=== PATIENT | male | born 1960 | race Caucasian/White ===

== ENCOUNTER 2018-07-01 17:47 | Inpatient (IN) ==
[2018-07-01] MEDS ORDERED: OXYCODONE Oral CONC 10 MG/0.5 ML ORAL.SYG SL PRN (22:01)
[2018-07-01] MEDS ORDERED: Naloxone 0.4 MG/ML INJ IVP PRN (22:01)
[2018-07-01] MEDS ORDERED: *HR* Heparin 5,000 UNIT/ML VIAL IVP PRN (22:08)
[2018-07-01] MEDS ORDERED: *HR* Heparin 5,000 UNIT/ML VIAL IVP ONE (22:08)
--- NOTE | 2018-07-01 22:15 | Internal Med History&Physical ---
Date of Encounter: 07/02/18 Time of Encounter: 21:39 Internal Medicine - H&P: HPI Chief complaint: DVT right lower extremity Admitted From: Hospital to Hospital Transfer Plans for Post Hospital Care: Home History of present illness: Mr. Logan is a 58 year old male Patient presented to the [place] emergency room with concern for possible clot. He had recent vascular surgery about 10 days ago. He was discharged on June 14. He has been on Xarelto for a few months, but has missed doses. His right leg was operated on, and he has had swelling and pain since the procedure. He also had shortness of breath in the setting of COPD and emphysema. He came to the emergency room for further evaluation. The [place] emergency room patient's vital signs initially were heart rate 74, O2 saturation 93%, respiratory rate 21, blood pressure 108/64. CBC: White count 8.0, hemoglobin 13.7, hematocrit 41.7, platelets 299. BMP: Sodium 137, potassium 3.8, chloride 103, carbon dioxide 28, BUN 15, creatinine 0.94. Patient's lactic acid was 1.3. CT angiogram was ordered that showed no PE and no acute process. EKG showed sinus rhythm with a rate of 81, QTC of 476. An ultrasound was performed of the patient's right lower extremity that showed a DVT at the right femoral vein proximal to distal thigh there was no evidence of superficial venous thrombosis in imaged vessels. Patient was put on a heparin drip and transferred to [facility] for further management. Upon my assessment, patient is resting in hospital bed in mild distress secondary to pain. He denies chest pain, abdominal pain, nausea, vomiting, diarrhea and constipation. He says he was feeling short of breath previously but he has a history of COPD and emphysema, and uses an albuterol inhaler for this. He says soaking his leg in hot water helps with the pain, and when he does walk is better to move then to stand still. He has pain that will shoot down from his knee to his foot. He has no pain above his knee. His toes feel numb, like they have for several weeks now. He is a 1-2 pack per day smoker, has family history of blood clots as well as cancers. He is a full code. Past Med Surg Social Fam HX - Past Medical History Medical history: DVT, kidney stones, pulmonary embolus Additional medical history: CVD. cataracts. RBBB. stomach ulcer. emphysema. PE. 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 Right LE , IVC filter. - Social History Smoking Status: Current every day smoker Smokeless Tobacco Status: No Alcohol use: none Drug use: none Internal Medicine - H&P: Meds Aspirin [Lo-Dose Aspirin EC] 81 mg PO DAILY 06/12/18 [History] Fluticasone Propionate Nasal [Flonase] 2 spr NS DAILY 06/12/18 [History] Fluticasone/Salmeterol [Advair 100-50 Diskus] 1 puff IH BID 06/12/18 [History] Rivaroxaban [Xarelto] 20 mg PO DAILY #0 06/12/18 [Rx] Tiotropium [Spiriva] 18 mcg IH DAILY 06/12/18 [History] Albuterol Sulfate [Ventolin Hfa] 2 puff IH Q6H PRN 06/13/18 [History] Ketotifen Fumarate [Allergy Eye Drops] 1 drop BOTH EYES DAILY PRN 06/13/18 [History] Gabapentin 100 mg PO TID 07/01/18 [History] Allergy/AdvReac Type Severity Reaction Status Date / Time No Known Allergies Allergy Verified 06/13/18 16:43 All Systems PM: A 10-system review of systems was performed and is negative for pertinent findings except as documented above in the HPI. - Constitutional Vitals: Temp Pulse Resp BP Pulse Ox 98.2 F 80 14 116/72 98 07/01/18 20:40 07/01/18 20:40 07/01/18 20:40 07/01/18 20:40 07/01/18 20:40 General appearance: Present: cooperative, mild distress, A&O X 3, pleasant, answers questions appropriately Exam: - - Head Head exam: Present: normal inspection - Eye Eye exam: Present: EOMI, normal appearance - Respiratory Respiratory exam: Present: CTAB. Absent: rales, respiratory distress, rhonchi, wheezes - Cardiovascular Cardiovascular exam: Present: RRR. Absent: diastolic murmur, systolic murmur - GI/Abdominal GI/Abdominal exam: Present: normal bowel sounds, soft. Absent: tenderness - Extremities Exam Extremities exam: Present: tenderness, warm, radial pulses palpable and symmetrical. Absent: pedal edema Additional comments: numbness of right leg anteriorly from knee down to toes. Pulses intact, limb is warm, movement intact 2 incisions laterally and medial in lower leg, with bala. Wounds healing well - Neurological Exam Neurological exam: Present: no focal deficits, strengths equal and symetr throughout. Absent: motor sensory deficit, facial droop, speech deficit - Skin Skin exam: Present: dry, intact, normal color, warm. Absent: erythema Internal Med - H&P Results - Labs CBC & Chem 7: 07/01/18 22:27 - Assessment and Plan (1) Deep vein thrombosis Current Visit: No Status: Chronic Assessment and plan: As seen on ultrasound, patient has DVT in right femoral vein in the prox-distal thigh. Started on heparin drip at [facility]. Patient admits to missing some doses of his xarelto. Has history of DVT when he was 17 years old. Continue heparin drip Vascular surgery consult Qualifiers: DVT location: lower extremity Affected thrombotic vein of extremity: femoral Chronicity: chronic Laterality: right Qualified Code(s): I82.511 - Chronic embolism and thrombosis of right femoral vein (2) Right leg numbness Current Visit: Yes Status: Acute Assessment and plan: Likely related to DVT seen on imaging as well as recent surgery. Patient had recent surgery on his leg including endarterectomy, thrombectomy, angioplasty and then also a separte procedure for fasciotomy and thrombectomy. Dr. Mark performed both surgeries. Patient still has bala in his leg incisions. Follow up vasclar surgery recommendations Continue to monitor. (3) COPD (chronic obstructive pulmonary disease) Current Visit: No Status: Chronic Assessment and plan: Continue home albuterol as needed. Qualifiers: COPD type: emphysema Emphysema type: panlobular Qualified Code(s): J43.1 - Panlobular emphysema (4) Hypercoagulable state Current Visit: No Status: Chronic Assessment and plan: Patient has a history of blood clots, first one he had at the age of 17. He has been on anticoagulants on and off over the years. He usually takes the medication for a while, but stops taking it once he starts feeling better. He also has trouble paying for the medication. Heparin drip started (5) Tobacco abuse Current Visit: No Status: Chronic Assessment and plan: 1-2 pack per day smoker. Patient should consider quitting, as it increases his risk of clot even more. Declines nicotine patch - Time Spent With Patient Total time spent is greater than 50% in coordination of care (as documented) at patient's floor/unit and/or counseling patient: Greater than 35 minutes
[2018-07-01 22:36] LABS: Hematocrit 37.8 % (37.5-50.1); Hemoglobin 12.5 g/dL (12.9-16.9); Mean Corpuscular HGB Conc 33.1 g/dL (31.6-35.5); Mean Corpuscular Hemoglobin 30.1 pg (28.0-33.3); Mean Corpuscular Volume 91.1 fL (83.0-100.0); Mean Platelet Volume 9.4 fL (9.4-12.4); Platelet Count 266 K/mcL (140-400); Red Blood Count 4.15 M/mcL (4.19-5.50); Red Cell Distribution Width 13.3 % (11.5-14.5)
[2018-07-01 22:47] LABS: Heparin anti-factor XA UFH 0.72 IU/mL (0.30-0.70)
[2018-07-01 22:48] LABS: INR 1.2; Prothrombin Time 13.4 Seconds (9.4-12.1)
[2018-07-01] MEDS: OXYCODONE Oral CONC 10 MG/0.5 ML ORAL.SYG SL PRN (22:56)
[2018-07-01] MEDS: 0.9 % Sodium Chloride 1,000 ML IVC SCH (22:56)
[2018-07-01] MEDS: Heparin 25,000 UNIT/250 ML D5W 25,000 UNIT/250 ML IV.SOLN IVC SCH (23:44)
[2018-07-02] MEDS: OXYCODONE Oral CONC 10 MG/0.5 ML ORAL.SYG SL PRN ×4 (02:49→20:06)
[2018-07-02] MEDS: 0.9 % Sodium Chloride 1,000 ML IVC SCH (05:44)
[2018-07-02 06:21] LABS: Hematocrit 37.4 % (37.5-50.1); Hemoglobin 12.2 g/dL (12.9-16.9); Mean Corpuscular HGB Conc 32.6 g/dL (31.6-35.5); Mean Corpuscular Volume 91.9 fL (83.0-100.0); Mean Platelet Volume 9.9 fL (9.4-12.4); Platelet Count 247 K/mcL (140-400); Red Blood Count 4.07 M/mcL (4.19-5.50); Red Cell Distribution Width 13.3 % (11.5-14.5)
[2018-07-02 07:29] LABS: BUN/Creatinine Ratio 16 (6-26); Blood Urea Nitrogen 14 mg/dL (6-20); Calcium 8.7 mg/dL (8.6-10.3); Carbon Dioxide 27 mEq/L (23-29); Chloride 107 mEq/L (98-107); Glucose 96 mg/dL (70-105); Osmolality,Calculated 292 (280-300); Potassium 3.9 mEq/L (3.5-5.1); Sodium 141 mEq/L (136-145); eGFR For Non-African Americans > 60 (> 60)
--- NOTE | 2018-07-02 08:57 | Internal Med Progress Note ---
<Estefania Sands - Last Filed: 07/02/18 16:06> Hospitalist Progress Note - Encounter Date of Encounter: 07/02/18 - Exam Vitals: Temp Pulse Resp BP Pulse Ox 97.9 F 72 18 115/67 95 07/02/18 14:42 07/02/18 14:42 07/02/18 14:42 07/02/18 14:42 07/02/18 14:42 - Time Spent with Patient Total time spent is greater than 50% in coordination of care (as documented) at patient's floor/unit and/or counseling patient: Internal Medicine: Result - Labs CBC & Chem 7: 07/02/18 05:57 07/02/18 05:57 Labs: Short CBC 07/01/18 07/02/18 Range/Units 22:27 05:57 WBC 6.6 6.5 (4.3-11.1) K/mcL Hgb 12.5 L 12.2 L (12.9-16.9) g/dL Hct 37.8 37.4 L (37.5-50.1) % Plt Count 266 247 (140-400) K/mcL BMP 07/02/18 05:57 Sodium 141 Potassium 3.9 Chloride 107 Carbon Dioxide 27 BUN 14 Creatinine 0.88 Glucose 96 Calcium 8.7 - ABG Interpretation ABG results: PT/INR, D-dimer PT 13.4 Seconds (9.4-12.1) H 07/01/18 22:27 Consult Discharge Plan - Plan Referrals: Matteo Olivo [Primary Care Provider] - - Attending Attestation I examined this patient and my medical decision-making was reviewed with the Resident Physician Dr Mccormack. I agree with the documented findings, dispos ition and treatment plan as described except to the extent set forth below. Mr Logan was admitted for RLE DVT awake, cont right leg pain, tolerable and resting on hep gtt, denies any bleeding on gtt. no cp, pressure, denies any sob that is beyond his baseline from emphysema. gen- alert, awake,appears stated age cv- reg rate and rhythm, normal s1,s2, no murmurs appreciated, no pitting le edema lungs- ctabl, normal resp effort on ra msk- right leg circumference slightly bigger than left, + geovanna neuro- AAOx3, sensation intact to light touch bl le Chronic RLE DVT femoral vein as our team d/w Dr Mark In past month ahs had endarterectomy, thrombectomies, angioplasty and compartment syndrome requiring fasciotomy He has NOT failed xarelto, he simply does not routinely take it -our team d/w Dr Mark who will see him later today, no intervention planned -cont hep gtt -hope we can transition to Xarelto in am -sw consulted to assess how we can help him at home to be complaint COPD, stable CTA chest neg for PE sob is at his home baseline -cont home meds Chronic anemia stable further diagnoses and plan as noted by resident <Jolene Mccormack - Last Filed: 07/02/18 17:20> Hospitalist Progress Note - Encounter Date of Encounter: 07/02/18 Time of Encounter: 08:57 - Subjective Interval History: Patient seen and examined at bedside today. Past medical history of hypercoagulable state, DVT, PE, peripheral vascular disease, CAD, COPD, GI ulcer, right bundle branch block, current smoker. He presented from [place] emergency department after presenting with right lower extremity pain. He had a Doppler ultrasound performed of the right lower extremity that showed a DVT in the right femoral vein proximal to the distal thigh. He was placed on heparin drip and transferred to [place]. She also had a CTA that was negative for PE or acute process. Recent vascular surgery. On 06/12/18, patient had an IVC filter placed for chronic DVT in right superficial femoral as well as right popliteal. Then on 06/13/18 he underwent right superficial femoral endarterectomy with angioplasty, right popliteal artery thrombectomy, right tibial peroneal trunk endarterectomy with angioplasty. Later that day after the initial procedure patient had suspected compartment syndrome and was returned to the OR for right lower extremity exploration with fasciotomy and repeat thrombectomy. Patient states that he has had right lower extremity pain from the knee down since his surgery. He has a dull aching pain around calf where incisions are located as well as shooting neuropathic pain down to his foot. He states it is aggravated by standing still and improved upon with walking. Patient states that he continues to smoke 2 packs per day. He states that he has been taking his Xarelto approximately every other day since the surgery. He currently denies any shortness of breath, chest pain, pleuritic pain, abdominal pain, change in bowel habits, hematochezia, melena, dysuria, hematuria, pain in left leg. - Exam Vitals: Temp Pulse Resp BP Pulse Ox 98.4 F 59 20 113/72 95 07/02/18 07:03 07/02/18 07:03 07/02/18 07:03 07/02/18 07:03 07/02/18 07:03 Exam: Gen: Vitals noted. No acute distress. AAOx3, mildly agitated. HEENT: PERRL/EOMI, oropharynx clear, Normocephalic, atraumatic, MMM Cardiac: RRR, no murmur, +S1/S2, radial and posterior tibial pulses 3+ and symmetrical Pulmonary: Diminished lung sounds bilaterally, no wheezes, rales or rhonchi, equal chest expansion Abdomen: soft, nontender, BS noted, no guarding, no rebound. MSK: ROM intact, no joint swelling noted Extremities: Mild edema of right leg as compared to left, a well-healing lateral and medial calf incision with bala in place, no signs of drainage, erythema or infection. Tenderness to palpation around surgical incisions and calf. Feet symmetrically warm, dorsal pedis pulses 3+ and symmetrical, no cyanosis or clubbing Neuro: A&Ox3, moves all extremities, no focal deficits Psych: Appropriate mood and behavior - Assessment and Plan (1) Deep vein thrombosis Current Visit: No Status: Chronic Assessment and Plan: Patient has chronic right DVT- medication noncompliance with Xarelto, recent vascular surgery, history of hypercoagulable state with DVT and PE, current smoker 06/12/18-IVC filter placed for chronic right DVT and superficial femoral and right popliteal 06/13/18-right superficial endarterectomy with angioplasty, right popliteal artery thrombectomy, right tibial peroneal trunk endarterectomy with angioplasty 06/13/18-compartment syndrome with fasciotomy and repeat thrombectomy Ultrasound yesterday at [place] ED showed DVT in right femoral vein the proximal/distal thigh CTA at [place] was negative for PE or acute pulmonary process Continue pain management with sublingual oxycodone Continue heparin drip Plan on transitioning to Xarelto- patient did not fail treatment with Xarelto, rather he has been noncompliant Vascular surgery consulted for recommendations Social work consult for possible home services, medication noncompliance (2) Right leg numbness Current Visit: Yes Status: Acute Assessment and Plan: Patient complains of right lower extremity numbness and neuropathic pain Likely secondary to recent surgery Continue gabapentin (3) Hypercoagulable state Current Visit: No Status: Chronic Assessment and Plan: Patient has a history of hypercoagulable state First blood clot occurred around age 17 Has been off and on anticoagulation since that time Continue heparin drip with plan to transition to Xarelto Encouraged medication compliance with Xarelto (4) COPD (chronic obstructive pulmonary disease) Current Visit: Yes Status: Chronic Assessment and Plan: History of COPD Not in exacerbation Continue albuterol, Symbicort, Spiriva Respiratory support as needed (5) Tobacco abuse Current Visit: No Status: Chronic Assessment and Plan: History of tobacco abuse Currently smoking 2 packs per day Discussed risks of smoking as well as risk of further blood clots Encourage smoking cessation (6) Anemia Current Visit: Yes Status: Acute Assessment and Plan: Review of chart shows patient's hemoglobin to be 15.8 and May prior to vascular surgery Has been baseline 12 since that time No acute bleeding at this time, no melena or hematochezia Further workup outpatient with PCP DVT Prophylaxis: Heparin drip - Time Spent with Patient Total time spent is greater than 50% in coordination of care (as documented) at patient's floor/unit and/or counseling patient: Internal Medicine: Result - Labs CBC & Chem 7: 07/02/18 05:57 07/02/18 05:57 Labs: Short CBC 07/01/18 07/02/18 Range/Units 22:27 05:57 WBC 6.6 6.5 (4.3-11.1) K/mcL Hgb 12.5 L 12.2 L (12.9-16.9) g/dL Hct 37.8 37.4 L (37.5-50.1) % Plt Count 266 247 (140-400) K/mcL BMP 07/02/18 05:57 Sodium 141 Potassium 3.9 Chloride 107 Carbon Dioxide 27 BUN 14 Creatinine 0.88 Glucose 96 Calcium 8.7 - ABG Interpretation ABG results: PT/INR, D-dimer PT 13.4 Seconds (9.4-12.1) H 07/01/18 22:27 <Jolene Mccormack - Tres Filed: 07/02/18 17:20> (1) Deep vein thrombosis Qualifiers: DVT location: lower extremity Affected thrombotic vein of extremity: femoral Chronicity: chronic Laterality: right Qualified Code(s): I82.511 - Chronic embolism and thrombosis of right femoral vein (4) COPD (chronic obstructive pulmonary disease) Qualifiers: COPD type: emphysema Emphysema type: panlobular Qualified Code(s): J43.1 - Panlobular emphysema (6) Anemia Qualifiers: Anemia type: unspecified type Qualified Code(s): D64.9 - Anemia, unspecified
[2018-07-02] MEDS: *HR* Heparin 5,000 UNIT/ML VIAL IVP PRN (14:53)
--- NOTE | 2018-07-02 18:17 | Vascular/Endovasc Consult Note ---
Date of Encounter: 07/02/18 Time of Encounter: 11:30 Assessment and Plan (1) Deep vein thrombosis Status: Chronic The patient has a chronic DVT. His DVT was present prior to his bypass surgery. He has a hypercoagulable state. He states that he missed a few doses. He will need to resume oral anticoagulation. The patient has been previously treated with Xarelto 20 mg daily. He does not appear to have had a failure of anticoagulation. He should resume his medication. Qualifiers: DVT location: lower extremity Affected thrombotic vein of extremity: femoral Chronicity: chronic Laterality: right Qualified Code(s): I82.511 - Chronic embolism and thrombosis of right femoral vein (2) Atherosclerosis of [place] arteries of extremities with intermittent claudication, right leg Status: Chronic The patient is status post a right femoral to tibial bypass. His graft is patent and his right lower extremity is well perfused. He has a palpable right dorsalis pedis pulse. His incisions are healing well. His compartments are soft. The patient will follow-up in vascular clinic as previously scheduled. (3) Peripheral neuropathy Status: Chronic The patient has symptoms consistent with peripheral neuropathy involving the right lower extremity. He was previously taking gabapentin with success. He will be restarted on gabapentin. Qualifiers: Peripheral neuropathy type: inflammatory polyneuropathy, unspecified Qualified Code(s): G61.9 - Inflammatory polyneuropathy, unspecified; G61.1 - Serum neuropathy (4) COPD (chronic obstructive pulmonary disease) Status: Chronic Qualifiers: COPD type: emphysema Emphysema type: panlobular Qualified Code(s): J43.1 - Panlobular emphysema (5) Hypercoagulable state Status: Chronic (6) Tobacco abuse Status: Chronic - History of Present Illness Consult date: 07/02/18 Requesting physician: Hay Ortiz Consult reason: Chronic deep vein thrombosis Chief complaint: Leg pain History of present illness: Mr. Logan is a 58 year old male with history of peripheral vascular disease, hypercoagulable state, chronic deep vein thrombosis, COPD and tobacco abuse. He has been chronically anticoagulated due to his hypercoagulable state. Patient has a known extremity deep vein thrombosis. His inferior vena cava filter in place. The patient reports he missed a few days of his anticoagulation and developed increased leg pain. In addition the patient has chronic neuropathy of the right lower extremity due to prolonged ischemia. He was previously treated with gabapentin, but he ran out of the medication. Diffuse increased pain and was admitted to [facility]. Vascular surgery was counseled for further evaluation of his deep vein thrombosis and is chronically pain. Of note the patient is also undergone a right femoral to tibial bypass and his previous required a fasciotomy. The patient reports intermittent shooting and burning pain when he stands he states that this pain is relieved with ambulation. He currently denies any chest pain or shortness of breath. Past Med Surg Social Fam HX - Past Medical History Medical history: DVT, kidney stones, pulmonary embolus Additional medical history: CVD. cataracts. RBBB. stomach ulcer. emphysema. PE. 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 Right LE , IVC filter. - Social History Smoking Status: Current every day smoker Smokeless Tobacco Status: No Alcohol use: none Drug use: none - Family History Mother Living Status: Father Living Status: Medications and Allergies Aspirin [Lo-Dose Aspirin EC] 81 mg PO DAILY 06/12/18 [History] Fluticasone Propionate Nasal [Flonase] 2 spr NS DAILY 06/12/18 [History] Fluticasone/Salmeterol [Advair 100-50 Diskus] 1 puff IH BID 06/12/18 [History] Rivaroxaban [Xarelto] 20 mg PO DAILY #0 06/12/18 [Rx] Albuterol Sulfate [Ventolin Hfa] 2 puff IH Q6H PRN 06/13/18 [History] Ketotifen Fumarate [Allergy Eye Drops] 1 drop BOTH EYES DAILY PRN 06/13/18 [History] Gabapentin [Neurontin] 100 mg PO TID 07/01/18 [History] Tiotropium [place] [Spiriva Respimat] 2 puff IH DAILY 07/02/18 [History] Allergy/AdvReac Type Severity Reaction Status Date / Time No Known Allergies Allergy Verified 07/02/18 17:49 All Systems Review: The remainder of the systems were reviewed and are negative - Constitutional Constitutional: no chills, no fever(s) - Cardiovascular Cardiovascular: no chest pain at rest, no dyspnea at rest - Gastrointestinal Gastrointestinal: no abdominal pain Exam Vital Signs, Last 4 Hours Temp Pulse Resp BP Pulse Ox 07/02/18 14:42 97.9 F 72 18 115/67 95 General: Present: Conversant, No Apparent Distress HEENT: Present: Pupils equal Neck: Absent: JVD, Lymphadenopathy Cardiac: Present: Reg Rate and Rhythm Lungs: Present: Normal Breath Sounds, No Wheeze, Rales, Rhonchi Neuro: Present: Alert and responsive, Motor nerves grossly intact, Other (Hypersensitivity along the anterior right foot) Abdomen: Present: Soft, Non-tender Vascular: Present: Normal capillary refill, Pulse, normal (Right posterior tibial pulse palpable), Surgical incisions (Incisions clean, dry and intact without erythema or drainage). Absent: Cyanosis, Edema Musculoskeletal: Present: Other (Compartments are soft) Consult Discharge Plan - Plan Instructions: Rivaroxaban (By mouth), Deep Venous Thrombosis (DC) Additional Instructions: TAKE XARELTO EVERY DAY IN THE MORNING YOU HAD YOUR DOSE TODAY FOLLOW UP WITH DR MCCAULEY ALREADY SCHEDULED Referrals: Stephane Mccauley MD [Partnered Physician] - Matteo Olivo [Primary Care Provider] - 07/04/18 9:00 am
[2018-07-02] MEDS: Tiotropium 18 MCG inhalation IH SCH (19:30)
[2018-07-02] MEDS: Gabapentin 100 MG CAPSULE PO SCH (20:06)
[2018-07-02] MEDS: Budesonide/Formoterol 80/4.5 MDI IH SCH (20:22)
[2018-07-02] MEDS ORDERED: Gabapentin 100 MG CAPSULE PO SCH (21:00)
[2018-07-03] MEDS: *HR* Heparin 5,000 UNIT/ML VIAL IVP PRN (00:05)
[2018-07-03] MEDS: OXYCODONE Oral CONC 10 MG/0.5 ML ORAL.SYG SL PRN ×2 (00:15→06:01)
[2018-07-03] MEDS: Heparin 25,000 UNIT/250 ML D5W 25,000 UNIT/250 ML IV.SOLN IVC SCH (02:52)
[2018-07-03 07:19] LABS: Basophils # 0.1 K/mcL (0.0-0.2); Basophils % 1.6 %; Eosinophils # 0.6 K/mcL (0.0-0.6); Eosinophils % 10.2 %; Hematocrit 37.8 % (37.5-50.1); Hemoglobin 12.5 g/dL (12.9-16.9); Immature Granulocytes % 0.2 % (0-4); Lymphocytes # 2.1 K/mcL (0.6-4.6); Lymphocytes % 34.2 %; Mean Corpuscular HGB Conc 33.1 g/dL (31.6-35.5); Mean Corpuscular Hemoglobin 29.7 pg (28.0-33.3); Mean Corpuscular Volume 89.8 fL (83.0-100.0); Mean Platelet Volume 9.9 fL (9.4-12.4); Monocytes # 0.5 K/mcL (0.0-1.3); Monocytes % 8.5 %; Neutrophils # 2.8 K/mcL (1.6-8.9); Platelet Count 238 K/mcL (140-400); Red Blood Count 4.21 M/mcL (4.19-5.50); Red Cell Distribution Width 12.7 % (11.5-14.5); Segmented Neutrophils % 45.3 %
[2018-07-03 07:32] LABS: BUN/Creatinine Ratio 11 (6-26); Blood Urea Nitrogen 10 mg/dL (6-20); Calcium 9.1 mg/dL (8.6-10.3); Carbon Dioxide 29 mEq/L (23-29); Chloride 101 mEq/L (98-107); Glucose 101 mg/dL (70-105); Osmolality,Calculated 281 (280-300); Sodium 136 mEq/L (136-145); eGFR For Non-African Americans > 60 (> 60)
[2018-07-03] MEDS: Budesonide/Formoterol 80/4.5 MDI IH SCH (07:54)
[2018-07-03] MEDS: Tiotropium 18 MCG inhalation IH SCH (07:55)
[2018-07-03] MEDS: Gabapentin 100 MG CAPSULE PO SCH (08:57)
[2018-07-03] MEDS ORDERED: Fluticasone Propionate Nasal 50 MCG/SPRAY BOTTLE NS SCH (09:00)
--- NOTE | 2018-07-03 11:45 | Discharge Summary ---
- NOTES TO OUTPATIENT PROVIDER Notes to Outpatient Provider: Follow up with Dr Mccauley as scheduled. Cont home xarelto daily. Orders not resulted at time of discharge: Pending orders 07/03/18 14:50 Heparin anti-factor XA UFH [COAG] Timed Date of Encounter: 07/03/18 Time of Encounter: 09:00 - Discharge Diagnosis (1) Right leg pain Priority: Primary Status: Chronic Assessment and Plan: 2/2 DVT see below cont home OTC as instructed on bottle for pain control we did not rx opiate for this chronci pain comfortable on dc follow up with putpt providers (2) Chronic deep vein thrombosis (DVT) Priority: Secondary Status: Chronic Assessment and Plan: Chronic RLE DVT femoral vein as our team d/w Dr Mccauley In past month ahs had endarterectomy, thrombectomies, angioplasty and compartment syndrome requiring fasciotomy He has NOT failed xarelto, he simply does not routinely take it -our team d/w Dr Mccauley no intervention planned, CONT HOME XARELTO, FU OUTPT -give xarelto, then dc hep gtt -sw consulted to assess how we can help him at home to be complaint Qualifiers: DVT location: lower extremity Affected thrombotic vein of extremity: femoral Laterality: right Qualified Code(s): I82.511 - Chronic embolism and thrombosis of right femoral vein (3) Emphysema of lung Priority: Secondary Status: Chronic Assessment and Plan: COPD, stable CTA chest neg for PE sob is at his home baseline -cont home meds Qualifiers: Emphysema type: unspecified Qualified Code(s): J43.9 - Emphysema, unspecified (4) Chronic anemia Priority: Secondary Status: Chronic Assessment and Plan: stable (5) Tobacco abuse Priority: Secondary Status: Chronic Assessment and Plan: encouraged cessation, declined patch Hospital course: Mr. Logan is a 58 year old male with chronic hypercoagulable state with multiple DVTS s/p IVCF, recent endarterectomy, thrombectomies, angioplasty and compartment syndrome requiring fasciotomy of the RLE end of May by Dr Mccauley, tobacco dependence, chronic anemia, chronic anticoagulation use with non compliance admitted by patient, and emphysema on home inhalers without oxygen requirement. He was admitted with RLE numbness and pain post procedure. US RLE showed DVT that as d/w Dr Mccauley is chronic for patient. Pt admitted to not routinely taking Xarelto at home. He was started on hep gtt. Hgb stayed stable at his baseline chronic anemia value. He has no issues with his emphysema. Though he noted sob in ED and got CTA chest which was negative for pe or other etiology of sob. Pt reported on admission he was at his baseline sob. I discuss ed with Dr Mccauley whom saw him in consultation 07/02 and this is a chronic dVT for which no intervention is required and pt may transition to home xarelto and stop hep gtt and dc to home with outpt follow up. SW was consulted to assess any home needs to aide compliance. Discharge discussed with: patient, nurse, apprenticeship consultant Time spent discussing smoking cessation with patient: more than 10 minutes - Time Spent with Patient Total time spent providing and/or coordinating discharge services: Time spent: Greater than 30 minutes (45 min) - Discharge Medications Prescriptions: Continued Fluticasone/Salmeterol [Advair 100-50 Diskus] 1 puff IH BID Fluticasone Propionate Nasal [Flonase] 2 spr NS DAILY Aspirin [Lo-Dose Aspirin EC] 81 mg PO DAILY Rivaroxaban [Xarelto] 20 mg PO DAILY #0 Albuterol Sulfate [Ventolin Hfa] 2 puff IH Q6H PRN PRN Reason: Shortness Of Breath Ketotifen Fumarate [Allergy Eye Drops] 1 drop BOTH EYES DAILY PRN PRN Reason: Allergy Symptoms Gabapentin [Neurontin] 100 mg PO TID Tiotropium [place] [Spiriva Respimat] 2 puff IH DAILY Home Medications: Aspirin [Lo-Dose Aspirin EC] 81 mg PO DAILY 06/12/18 [History] Fluticasone Propionate Nasal [Flonase] 2 spr NS DAILY 06/12/18 [History] Fluticasone/Salmeterol [Advair 100-50 Diskus] 1 puff IH BID 06/12/18 [History] Rivaroxaban [Xarelto] 20 mg PO DAILY #0 06/12/18 [Rx] Albuterol Sulfate [Ventolin Hfa] 2 puff IH Q6H PRN 06/13/18 [History] Ketotifen Fumarate [Allergy Eye Drops] 1 drop BOTH EYES DAILY PRN 06/13/18 [History] Gabapentin [Neurontin] 100 mg PO TID 07/01/18 [History] Tiotropium [place] [Spiriva Respimat] 2 puff IH DAILY 07/02/18 [History] Allergies/Adverse Reactions: Allergy/AdvReac Type Severity Reaction Status Date / Time No Known Allergies Allergy Verified 07/02/18 17:49 Date of admission: 07/01/18 22:26 Primary care physician: Matteo Olivo Consults: 07/01/18 22:03 Consult to Vascular Surgery [CONS] Routine Consulting Provider: [facility] [place] Reason for Consult: DVT status post endarterectomy, thrombectomy and fasciotomy Call Completed: No 07/02/18 17:14 Consult to [employer] [CONS] Routine Reason for SW Consult: Medication noncompliance, social issues Discharging clinician: Estefania Sands - Constitutional Vitals: Temp Pulse Resp BP Pulse Ox 98.0 F 58 18 101/62 94 07/03/18 07:15 07/03/18 07:15 07/03/18 07:57 07/03/18 07:15 07/03/18 07:57 General appearance: Present: cooperative, mild distress, A&O X 3, pleasant, answers questions appropriately Exam: awake, pain is at baseline. takes otc pain meds at home. walking without difficulty. no cp, sob. discussed dc plan and stress med complance. pt verbalized understanding and has no questions regarding dc. states he has appt with Dr Mccauley already scheduled for next week gen- alert, awake,appears stated age cv- reg rate and rhythm, normal s1,s2, no murmurs appreciated, no pitting le edema lungs- ctabl, normal resp effort on ra msk- right leg circumference slightly bigger than left skin- healing surgical wounds without erythema, drainage or increased warmth, bala in place neuro- AAOx3, sensation intact to light touch bl le - Patient Status Disposition: Home, Self-Care Condition: Good Functional capacity at discharge: independent ambulation Overall status at discharge: patient is back to baseline - Discharge Instructions Follow Up With: Matteo Olivo [Primary Care Provider] - Stephane Mccauley MD [Partnered Physician] - Additional Instructions: TAKE XARELTO EVERY DAY IN THE MORNING YOU HAD YOUR DOSE TODAY FOLLOW UP WITH DR MCCAULEY ALREADY SCHEDULED - Diet and Activity Activity: increase activity as tolerated Diet: advance to your usual diet
[2018-07-03 11:49] VITALS: BP 98/62
[2018-07-03] MEDS ORDERED: *HR* Rivaroxaban 10 MG TABLET PO SCH (13:00)
[2018-07-04] MEDS ORDERED: NON-FORMULARY MEDICATION 1 EACH EACH (Tiotropium Bromide [Spiriva Respimat] 2 PUFF) IH SCH (09:00)
== END 2018-07-03 15:15 | disposition home or self-care (01) | DRG 300 ==
LOC: 3BNU → SUATTDRO 22:26
PROVIDERS: ADMIT Internal Medicine; ATTEND Internal Medicine

== ENCOUNTER 2018-12-06 08:17 | Observation (INO) ==
[2018-12-06] MEDS ORDERED: Naloxone 0.4 MG/ML INJ IVP PRN ×2 (10:01→21:53)
[2018-12-06] MEDS ORDERED: Ondansetron 4 MG/2 ML VIAL IVP PRN ×2 (10:01→21:53)
[2018-12-06] MEDS ORDERED: *HR* Labetalol 20 MG/4 ML SYRINGE IVP PRN ×3 (10:01→21:53)
[2018-12-06] MEDS ORDERED: 0.9 % Sodium Chloride 1,000 ML IVC SCH ×2 (10:15→21:53)
[2018-12-06 10:39] LABS: Basophils # 0.1 K/mcL (0.0-0.2); Basophils % 0.8 %; Eosinophils # 0.3 K/mcL (0.0-0.6); Eosinophils % 4.6 %; Hematocrit 44.8 % (37.5-50.1); Hemoglobin 14.7 g/dL (12.9-16.9); Immature Granulocytes % 0.2 % (0-4); Lymphocytes # 1.4 K/mcL (0.6-4.6); Lymphocytes % 21.3 %; Mean Corpuscular HGB Conc 32.8 g/dL (31.6-35.5); Mean Corpuscular Hemoglobin 30.5 pg (28.0-33.3); Mean Corpuscular Volume 92.9 fL (83.0-100.0); Mean Platelet Volume 10.1 fL (9.4-12.4); Monocytes # 0.8 K/mcL (0.0-1.3); Monocytes % 11.9 %; Platelet Count 187 K/mcL (140-400); Red Blood Count 4.82 M/mcL (4.19-5.50); Red Cell Distribution Width 13.5 % (11.5-14.5); Segmented Neutrophils % 61.2 %; White Blood Count 6.5 K/mcL (4.3-11.1)
[2018-12-06 10:57] LABS: INR 1.1; Prothrombin Time 12.6 Seconds (9.4-12.1)
[2018-12-06 11:00] LABS: Activated Partial Thrombo Time 34.5 Seconds (26.0-36.0)
[2018-12-06 11:00] LABS: BUN/Creatinine Ratio 19 (6-26); Blood Urea Nitrogen 20 mg/dL (6-20); Carbon Dioxide 31 mEq/L (23-29); Chloride 103 mEq/L (98-107); Glucose 107 mg/dL (70-105); Osmolality,Calculated 293 (280-300); Potassium 4.1 mEq/L (3.5-5.1); Sodium 140 mEq/L (136-145); eGFR For African Americans > 60 (> 60); eGFR For Non-African Americans > 60 (> 60)
[2018-12-06] MEDS: *HR* Metoprolol 5 MG/5 ML VIAL IVP SCH ×2 (11:59→19:04)
[2018-12-06] MEDS ORDERED: *HR* Heparin 5,000 UNIT/ML VIAL IVP ONE ×2 (12:23→21:53)
[2018-12-06] MEDS ORDERED: *HR* Heparin 5,000 UNIT/ML VIAL IVP PRN ×4 (12:23→21:53)
[2018-12-06] MEDS ORDERED: Heparin 25,000 UNIT/250 ML D5W 25,000 UNIT/250 ML IV.SOLN IVC SCH ×2 (12:30→21:53)
[2018-12-06] MEDS ORDERED: Calcium Gluconate 1,000 MG/10 ML VIAL ONE (15:45)
[2018-12-06] MEDS ORDERED: Lidocaine HCL 4 ML Topical Solution (Laryng-O-Jet Kit Sterile Pak) TP ONE (15:55)
[2018-12-06] MEDS ORDERED: Lidocaine -MPF 4% 5 ML AMPUL ONE (15:55)
[2018-12-06] MEDS ORDERED: *HR* FentaNYL (PF) 100 MCG/2 ML VIAL ONE (15:55)
[2018-12-06] MEDS ORDERED: Dexamethasone 4 MG/ML VIAL ONE (15:55)
[2018-12-06] MEDS ORDERED: Ondansetron 4 MG/2 ML VIAL ONE (15:55)
[2018-12-06] MEDS ORDERED: Lidocaine -MPF 2% 2 ML VIAL ONE ×2 (15:55→16:22)
[2018-12-06] MEDS ORDERED: *HR* Succinylcholine 200 MG/10 ML VIAL IVP ONE (15:55)
[2018-12-06] MEDS ORDERED: *HR* Rocuronium Bromide 50 MG/5 ML VIAL ONE (15:55)
[2018-12-06] MEDS ORDERED: *HR* Midazolam HCl 2 MG/2 ML VIAL ONE (15:56)
[2018-12-06] MEDS ORDERED: *HR* Propofol 200 MG/20 ML VIAL IVP ONE (15:56)
[2018-12-06] MEDS ORDERED: Vancomycin 1,000 MG, Sodium Chloride IRRigation 1,000 ML IR ONE (16:00)
[2018-12-06] MEDS ORDERED: Albuterol 2.5 MG/3 ML NEBULIZER IH ONE (16:00)
[2018-12-06] MEDS ORDERED: Acetaminophen IV 1,000 MG/100 ML INFUS..BTL ONE (16:11)
[2018-12-06] MEDS ORDERED: *HR* Heparin 5,000 UNIT/ML VIAL ONE (16:12)
[2018-12-06] MEDS ORDERED: Albuterol 2.5 MG/3 ML NEBULIZER ONE (16:14)
[2018-12-06] MEDS ORDERED: ceFAZolin 2,000 MG in Water for inj. (sterile) 20 ML IVP ONE (16:14)
[2018-12-06] MEDS ORDERED: Heparin 1,000 UNITS/500 mL 500 ML ONE (16:16)
[2018-12-06] MEDS ORDERED: Lidocaine 1% 20 ML MDV ONE (16:18)
[2018-12-06] MEDS ORDERED: *HR* Promethazine 25 MG/ML VIAL IVP PRN (16:51)
[2018-12-06] MEDS ORDERED: *HR* HYDROmorphone (PF) 1 MG/ML SYRINGE IVP PRN (16:51)
[2018-12-06] MEDS ORDERED: Ondansetron 4 MG/2 ML VIAL IVP ONE (16:51)
[2018-12-06] MEDS ORDERED: *HR* PHENYLEPHRINE 1,000 MCG/10 ML SYRINGE IVP ONE (17:09)
[2018-12-06] MEDS ORDERED: *HR* OxyCODONE Immed Rel 5 MG TABLET PO PRN ×2 (21:53)
[2018-12-06] MEDS ORDERED: Acetaminophen 325 MG TABLET PO PRN ×2 (21:53)
[2018-12-06] MEDS ORDERED: [UNRECOGNIZED DRUG - REMARK] OP PRN (21:53)
[2018-12-06] MEDS ORDERED: *HR* HYDROcodone/Acet 5/325 mg TABLET PO PRN ×2 (21:53)
[2018-12-06] MEDS: Gabapentin 100 MG CAPSULE PO SCH (23:09)
[2018-12-07] MEDS: Budesonide/Formoterol 80/4.5 1 PUFF INH IH SCH ×2 (00:49→10:32)
[2018-12-07] MEDS: *HR* Metoprolol 5 MG/5 ML VIAL IVP SCH ×3 (03:02→13:09)
[2018-12-07] MEDS: Gabapentin 100 MG CAPSULE PO SCH ×2 (08:12→16:18)
[2018-12-07] MEDS ORDERED: Aspirin Enteric Coated 81 MG Tablet PO SCH (09:00)
[2018-12-07] MEDS ORDERED: Fluticasone Propionate Nasal 50 MCG/SPRAY BOTTLE NS SCH (09:00)
[2018-12-07 09:34] LABS: Basophils % 0.4 %; Eosinophils # 0.1 K/mcL (0.0-0.6); Eosinophils % 0.9 %; Hematocrit 38.4 % (37.5-50.1); Immature Granulocytes % 0.2 % (0-4); Lymphocytes # 1.6 K/mcL (0.6-4.6); Lymphocytes % 17.7 %; Mean Corpuscular HGB Conc 33.3 g/dL (31.6-35.5); Mean Corpuscular Hemoglobin 30.2 pg (28.0-33.3); Mean Corpuscular Volume 90.6 fL (83.0-100.0); Mean Platelet Volume 10.5 fL (9.4-12.4); Monocytes # 0.6 K/mcL (0.0-1.3); Monocytes % 6.2 %; Neutrophils # 6.7 K/mcL (1.6-8.9); Platelet Count 183 K/mcL (140-400); Red Blood Count 4.24 M/mcL (4.19-5.50); Red Cell Distribution Width 13.4 % (11.5-14.5); Segmented Neutrophils % 74.6 %
[2018-12-07 09:44] LABS: Hemoglobin 12.8 g/dL (12.9-16.9)
[2018-12-07 09:48] LABS: BUN/Creatinine Ratio 18 (6-26); Blood Urea Nitrogen 18 mg/dL (6-20); Calcium 8.5 mg/dL (8.6-10.3); Carbon Dioxide 28 mEq/L (23-29); Chloride 100 mEq/L (98-107); Glucose 184 mg/dL (70-105); Osmolality,Calculated 285 (280-300); Potassium 4.5 mEq/L (3.5-5.1); Sodium 134 mEq/L (136-145); eGFR For African Americans > 60 (> 60); eGFR For Non-African Americans > 60 (> 60)
[2018-12-07] MEDS ORDERED: Tiotropium 18 MCG inhalation IH SCH (10:00)
[2018-12-07] MEDS ORDERED: *HR* Rivaroxaban 10 MG TABLET PO ONE (14:39)
[2018-12-07] MEDS ORDERED: FLU Vac QV 19-20 (6Month+)/PF 0.5 ML SYRINGE IM ONE (15:35)
[2018-12-07 15:46] VITALS: BP 128/69
== END 2018-12-07 16:45 | disposition home or self-care (01) ==
LOC: 3BNU → 2NNU 21:00
PROVIDERS: ADMIT Surgery; ATTEND Surgery

== ENCOUNTER 2019-01-01 09:54 | Inpatient (IN) ==
[~2019-01-01 09:54] MED LIST: Vancomycin 1,000 MG, Sodium Chloride IRRigation 1,000 ML IR ONE
[2019-01-01] MEDS ORDERED: Albuterol 2.5 MG/3 ML NEBULIZER IH PRN ×2 (10:19→11:20)
[2019-01-01] MEDS ORDERED: Acetaminophen IV 1,000 MG/100 ML INFUS..BTL IVPB ONE (10:19)
[2019-01-01] MEDS ORDERED: CeFAZolin Syr 2,000MG/20 ML 2,000 MG/20 ML SYRINGE IVPB ONE (10:19)
[2019-01-01] MEDS ORDERED: Ringers Solution, Lactated 1,000 ML IVC SCH (10:30)
[2019-01-01] MEDS ORDERED: *HR* Propofol 200 MG/20 ML VIAL IVP ONE (10:57)
[2019-01-01] MEDS ORDERED: *HR* Midazolam HCl 2 MG/2 ML VIAL ONE (10:58)
[2019-01-01] MEDS ORDERED: *HR* FentaNYL (PF) 100 MCG/2 ML VIAL ONE ×2 (10:58→12:55)
[2019-01-01] MEDS ORDERED: Dexamethasone 4 MG/ML VIAL ONE (11:02)
[2019-01-01] MEDS ORDERED: Lidocaine -MPF 2% 2 ML VIAL ONE (11:02)
[2019-01-01] MEDS ORDERED: Lidocaine HCL 4 ML Topical Solution (Laryng-O-Jet Kit Sterile Pak) TP ONE (11:02)
[2019-01-01] MEDS ORDERED: Ondansetron 4 MG/2 ML VIAL ONE (11:02)
[2019-01-01] MEDS ORDERED: *HR* Rocuronium Bromide 50 MG/5 ML VIAL ONE (11:02)
[2019-01-01] MEDS ORDERED: Ipratropium Neb 0.5 MG NEBULIZER IH PRN (11:20)
[2019-01-01] MEDS ORDERED: *HR* OxyCODONE Immed Rel 5 MG TABLET PO PRN ×2 (11:20→15:21)
[2019-01-01] MEDS ORDERED: Ondansetron 4 MG/2 ML VIAL IVP ONE (11:20)
[2019-01-01] MEDS ORDERED: *HR* HYDROmorphone (PF) 1 MG/ML SYRINGE IVP PRN (11:20)
[2019-01-01] MEDS ORDERED: *HR* Meperidine 25 MG/ML SYRINGE IVP PRN (11:20)
[2019-01-01] MEDS ORDERED: *HR* Promethazine 25 MG/ML VIAL IVP PRN (11:20)
[2019-01-01] MEDS ORDERED: Vancomycin 1,000 MG VIAL ONE (11:56)
[2019-01-01] MEDS ORDERED: *HR* PHENYLEPHRINE 1,000 MCG/10 ML SYRINGE IVP ONE (12:36)
[2019-01-01] MEDS ORDERED: EPHEDrine 50 MG/ML VIAL ONE (13:17)
[2019-01-01] MEDS ORDERED: *HR* Phenylephrine 10 MG/ML VIAL ONE (13:20)
[2019-01-01] MEDS ORDERED: Neostigmine Methylsulfate 3 MG/3 ML SYRINGE ONE (13:47)
[2019-01-01] MEDS ORDERED: *HR* HYDROMORPHONE 2 MG/ML VIAL ONE (13:58)
[2019-01-01] MEDS ORDERED: Acetaminophen 325 MG TABLET PO PRN ×2 (15:21)
[2019-01-01] MEDS ORDERED: Ondansetron 4 MG/2 ML VIAL IVP PRN (15:21)
[2019-01-01] MEDS ORDERED: Naloxone 0.4 MG/ML INJ IVP PRN (15:21)
[2019-01-01] MEDS ORDERED: 0.9 % Sodium Chloride 1,000 ML IVC SCH (15:21)
[2019-01-01] MEDS ORDERED: Fluticasone Propionate Nasal 50 MCG/SPRAY BOTTLE NS PRN (15:21)
[2019-01-01] MEDS ORDERED: *HR* HYDROcodone/Acet 5/325 mg TABLET PO PRN (15:21)
[2019-01-01] MEDS ORDERED: *HR* Labetalol 20 MG/4 ML SYRINGE IVP PRN (15:21)
[2019-01-01] MEDS: *HR* OxyCODONE Immed Rel 5 MG TABLET PO PRN (15:46)
[2019-01-01] MEDS: *HR* HYDROcodone/Acet 5/325 mg TABLET PO PRN (16:41)
[2019-01-01] MEDS: *HR* Metoprolol 5 MG/5 ML VIAL IVP SCH (17:38)
[2019-01-01] MEDS ORDERED: *HR* HYDROmorphone (PF) 1 MG/ML SYRINGE IVP ONE (19:44)
[2019-01-01] MEDS: Budesonide/Formoterol 80/4.5 1 PUFF INH IH SCH (19:45)
[2019-01-01] MEDS ORDERED: Ketorolac 30 MG/ML VIAL IVP ONE (19:48)
[2019-01-02] MEDS: *HR* OxyCODONE Immed Rel 5 MG TABLET PO PRN ×2 (01:05→08:04)
[2019-01-02] MEDS: Ketorolac 15 MG/ML VIAL IVP SCH ×4 (01:05→17:27)
[2019-01-02] MEDS: *HR* Metoprolol 5 MG/5 ML VIAL IVP SCH ×4 (01:06→17:28)
[2019-01-02 01:30] LABS: Basophils % 0.1 %; Hematocrit 38.4 % (37.5-50.1); Hemoglobin 12.8 g/dL (12.9-16.9); Immature Granulocytes % 0.2 % (0-4); Lymphocytes # 0.8 K/mcL (0.6-4.6); Lymphocytes % 8.6 %; Mean Corpuscular HGB Conc 33.3 g/dL (31.6-35.5); Mean Corpuscular Hemoglobin 30.4 pg (28.0-33.3); Mean Corpuscular Volume 91.2 fL (83.0-100.0); Mean Platelet Volume 10.3 fL (9.4-12.4); Monocytes # 0.7 K/mcL (0.0-1.3); Monocytes % 7.8 %; Neutrophils # 7.7 K/mcL (1.6-8.9); Platelet Count 208 K/mcL (140-400); Red Blood Count 4.21 M/mcL (4.19-5.50); Red Cell Distribution Width 12.8 % (11.5-14.5); Segmented Neutrophils % 83.3 %; White Blood Count 9.3 K/mcL (4.3-11.1)
[2019-01-02 01:51] LABS: BUN/Creatinine Ratio 18 (6-26); Blood Urea Nitrogen 17 mg/dL (6-20); Calcium 8.5 mg/dL (8.6-10.3); Carbon Dioxide 25 mEq/L (23-29); Chloride 99 mEq/L (98-107); Glucose 126 mg/dL (70-105); Osmolality,Calculated 273 (280-300); Potassium 4.9 mEq/L (3.5-5.1); Sodium 130 mEq/L (136-145); eGFR For African Americans > 60 (> 60); eGFR For Non-African Americans > 60 (> 60)
[2019-01-02] MEDS: *HR* HYDROmorphone (PF) 1 MG/ML SYRINGE IVP PRN ×3 (04:41→14:41)
[2019-01-02] MEDS ORDERED: *HR* Heparin 5,000 UNIT/ML VIAL SQ SCH (06:00)
[2019-01-02] MEDS: Budesonide/Formoterol 80/4.5 1 PUFF INH IH SCH ×2 (07:45→20:14)
[2019-01-02] MEDS: Tiotropium 18 MCG inhalation IH SCH (07:45)
[2019-01-02] MEDS: Aspirin Enteric Coated 81 MG Tablet PO SCH (08:04)
[2019-01-02] MEDS: *HR* Rivaroxaban 10 MG TABLET PO SCH (08:05)
[2019-01-02] MEDS ORDERED: *HR* OxyCODONE Immed Rel 5 MG TABLET PO SCH (14:15)
[2019-01-02] MEDS: *HR* OxyCODONE Immed Rel 5 MG TABLET PO SCH ×3 (15:50→20:37)
[2019-01-02] MEDS: *HR* HYDROcodone/Acet 5/325 mg TABLET PO PRN (22:38)
[2019-01-03] MEDS: *HR* OxyCODONE Immed Rel 5 MG TABLET PO SCH ×6 (00:02→20:01)
[2019-01-03] MEDS: *HR* Metoprolol 5 MG/5 ML VIAL IVP SCH ×4 (00:03→17:57)
[2019-01-03] MEDS: Ketorolac 15 MG/ML VIAL IVP SCH (00:03)
[2019-01-03] MEDS: *HR* HYDROmorphone (PF) 1 MG/ML SYRINGE IVP PRN ×4 (02:46→14:50)
[2019-01-03] MEDS: *HR* Rivaroxaban 10 MG TABLET PO SCH (07:36)
[2019-01-03] MEDS: Aspirin Enteric Coated 81 MG Tablet PO SCH (07:36)
[2019-01-03] MEDS: Budesonide/Formoterol 80/4.5 1 PUFF INH IH SCH ×2 (07:41→20:44)
[2019-01-03] MEDS: Tiotropium 18 MCG inhalation IH SCH (07:41)
[2019-01-03] MEDS: *HR* OxyCODONE/APAP 10/325 TABLET PO PRN (22:57)
[2019-01-04] MEDS: *HR* OxyCODONE Immed Rel 5 MG TABLET PO SCH ×7 (00:37→23:55)
[2019-01-04] MEDS: *HR* Metoprolol 5 MG/5 ML VIAL IVP SCH ×4 (00:38→17:46)
[2019-01-04] MEDS: *HR* Rivaroxaban 10 MG TABLET PO SCH (07:38)
[2019-01-04] MEDS: Aspirin Enteric Coated 81 MG Tablet PO SCH (07:38)
[2019-01-04] MEDS: Budesonide/Formoterol 80/4.5 1 PUFF INH IH SCH ×2 (07:47→20:27)
[2019-01-04] MEDS: Tiotropium 18 MCG inhalation IH SCH (07:47)
[2019-01-04] MEDS: *HR* OxyCODONE/APAP 10/325 TABLET PO PRN ×3 (11:35→19:52)
[2019-01-05] MEDS: *HR* Metoprolol 5 MG/5 ML VIAL IVP SCH ×3 (01:24→11:34)
[2019-01-05] MEDS: *HR* OxyCODONE/APAP 10/325 TABLET PO PRN ×2 (03:28→15:10)
[2019-01-05] MEDS: *HR* OxyCODONE Immed Rel 5 MG TABLET PO SCH ×3 (05:50→11:31)
[2019-01-05] MEDS: Aspirin Enteric Coated 81 MG Tablet PO SCH (07:42)
[2019-01-05] MEDS: *HR* Rivaroxaban 10 MG TABLET PO SCH (07:43)
[2019-01-05] MEDS: Budesonide/Formoterol 80/4.5 1 PUFF INH IH SCH (07:51)
[2019-01-05] MEDS: Tiotropium 18 MCG inhalation IH SCH (07:52)
[2019-01-05 13:08] VITALS: BP 139/80
== END 2019-01-05 15:26 | disposition home health service (06) | DRG 240 ==
LOC: SAMDAY 09:54 → 2NNU 15:20
PROVIDERS: ADMIT Surgery; ATTEND Surgery

== ENCOUNTER 2019-02-20 14:50 | Inpatient (IN) ==
[2019-02-20] MEDS ORDERED: 0.9 % Sodium Chloride 1,000 ML IVC ONE (17:52)
[2019-02-20] MEDS ORDERED: Piperacillin/Tazobactam 3.375 GM in 0.9 % Sodium Chloride Mini Bag 100 ML IVPB ONE (17:52)
[2019-02-20 18:19] LABS: Basophils # 0.1 K/mcL (0.0-0.2); Basophils % 0.7 %; Eosinophils # 0.2 K/mcL (0.0-0.6); Eosinophils % 2.3 %; Hematocrit 42.5 % (37.5-50.1); Hemoglobin 14.6 g/dL (12.9-16.9); Immature Granulocytes % 0.2 % (0-4); Lymphocytes # 1.9 K/mcL (0.6-4.6); Lymphocytes % 23.7 %; Mean Corpuscular HGB Conc 34.4 g/dL (31.6-35.5); Mean Corpuscular Hemoglobin 29.9 pg (28.0-33.3); Mean Corpuscular Volume 87.1 fL (83.0-100.0); Mean Platelet Volume 9.1 fL (9.4-12.4); Monocytes # 0.9 K/mcL (0.0-1.3); Monocytes % 10.5 %; Neutrophils # 5.1 K/mcL (1.6-8.9); Platelet Count 307 K/mcL (140-400); Red Blood Count 4.88 M/mcL (4.19-5.50); Red Cell Distribution Width 12.1 % (11.5-14.5); Segmented Neutrophils % 62.6 %; White Blood Count 8.1 K/mcL (4.3-11.1)
[2019-02-20 18:39] LABS: BUN/Creatinine Ratio 14 (6-26); Blood Urea Nitrogen 13 mg/dL (6-20); Calcium 9.2 mg/dL (8.6-10.3); Carbon Dioxide 31 mEq/L (23-29); Chloride 101 mEq/L (98-107); Glucose 93 mg/dL (70-105); Osmolality,Calculated 286 (280-300); Potassium 3.8 mEq/L (3.5-5.1); Sodium 138 mEq/L (136-145); eGFR For African Americans > 60 (> 60); eGFR For Non-African Americans > 60 (> 60)
[2019-02-21] MEDS ORDERED: Naloxone 0.4 MG/ML INJ IVP PRN (00:17)
[2019-02-21 04:15] LABS: Basophils # 0.1 K/mcL (0.0-0.2); Eosinophils # 0.2 K/mcL (0.0-0.6); Eosinophils % 2.7 %; Hematocrit 42.4 % (37.5-50.1); Hemoglobin 13.8 g/dL (12.9-16.9); Immature Granulocytes % 0.3 % (0-4); Mean Corpuscular HGB Conc 32.5 g/dL (31.6-35.5); Mean Corpuscular Hemoglobin 29.6 pg (28.0-33.3); Mean Platelet Volume 9.3 fL (9.4-12.4); Monocytes # 0.6 K/mcL (0.0-1.3); Monocytes % 8.8 %; Neutrophils # 4.1 K/mcL (1.6-8.9); Platelet Count 275 K/mcL (140-400); Red Blood Count 4.66 M/mcL (4.19-5.50); Red Cell Distribution Width 12.1 % (11.5-14.5); Segmented Neutrophils % 58.2 %
[2019-02-21 04:32] LABS: Alanine Aminotransferase 7 Units/L (7-52); Albumin 3.4 g/dL (3.5-5.7); Albumin/Globulin Ratio 1.5 (1.1-2.2); Alkaline Phosphatase 81 Units/L (34-104); Aspartate Amino Transferase 8 Units/L (13-39); BUN/Creatinine Ratio 12 (6-26); Bilirubin,Total 0.3 mg/dL (0.3-1.0); Blood Urea Nitrogen 10 mg/dL (6-20); C-Reactive Protein < 5 mg/L (Less than 10); Calcium 8.6 mg/dL (8.6-10.3); Carbon Dioxide 28 mEq/L (23-29); Chloride 106 mEq/L (98-107); Globulin 2.2 g/dL (2.4-3.5); Glucose 106 mg/dL (70-105); Magnesium 1.8 mg/dL (1.6-2.6); Osmolality,Calculated 285 (280-300); Phosphorous 3.4 mg/dL (2.7-4.5); Potassium 3.9 mEq/L (3.5-5.1); Sodium 138 mEq/L (136-145); Total Protein 5.6 g/dL (6.4-8.9); eGFR For African Americans > 60 (> 60); eGFR For Non-African Americans > 60 (> 60)
[2019-02-21] MEDS ORDERED: Nicotine 2 MG GUM BC PRN (05:15)
[2019-02-21] MEDS ORDERED: Albuterol 2.5 MG/3 ML NEBULIZER IH PRN (05:16)
[2019-02-21] MEDS ORDERED: Aminoglycoside Consult 1 EACH MC ONE (07:53)
[2019-02-21] MEDS: Budesonide/Formoterol 80/4.5 1 PUFF INH IH SCH ×2 (08:15→20:38)
[2019-02-21] MEDS: Tiotropium 18 MCG inhalation IH SCH (08:16)
[2019-02-21 08:56] LABS: Estimated Average Glucose 114 mg/dl
[2019-02-21] MEDS: *HR* Rivaroxaban 10 MG TABLET PO SCH (10:03)
[2019-02-21] MEDS: Aspirin Enteric Coated 81 MG Tablet PO SCH (10:03)
[2019-02-21] MEDS: Baclofen 10 MG TABLET PO SCH ×3 (10:03→20:59)
[2019-02-21] MEDS: Gabapentin 300 MG CAPSULE PO SCH ×3 (10:03→20:59)
[2019-02-21] MEDS: Nicotine 14 MG PATCH.TD24 TD SCH (10:04)
[2019-02-21] MEDS: Piperacillin/Tazobactam 3.375 GM in 0.9 % Sodium Chloride Mini Bag 100 ML IVPB SCH (15:26)
[2019-02-21] MEDS: Silvasorb 44.4 ML TUBE TP SCH (15:27)
[2019-02-21] MEDS: traZODone 50 MG TABLET PO SCH (20:59)
[2019-02-22] MEDS: Piperacillin/Tazobactam 3.375 GM in 0.9 % Sodium Chloride Mini Bag 100 ML IVPB SCH ×4 (01:00→20:10)
[2019-02-22] MEDS: Nicotine 14 MG PATCH.TD24 TD SCH (08:07)
[2019-02-22] MEDS: Silvasorb 44.4 ML TUBE TP SCH (08:07)
[2019-02-22] MEDS: *HR* Rivaroxaban 10 MG TABLET PO SCH (08:07)
[2019-02-22] MEDS: Gabapentin 300 MG CAPSULE PO SCH ×3 (08:07→23:07)
[2019-02-22] MEDS: Aspirin Enteric Coated 81 MG Tablet PO SCH (08:07)
[2019-02-22] MEDS: Baclofen 10 MG TABLET PO SCH ×3 (08:07→23:07)
[2019-02-22] MEDS: Tiotropium 18 MCG inhalation IH SCH (08:15)
[2019-02-22] MEDS: Budesonide/Formoterol 80/4.5 1 PUFF INH IH SCH ×2 (08:15→19:58)
[2019-02-22 13:52] LABS: Basophils # 0.1 K/mcL (0.0-0.2); Eosinophils # 0.3 K/mcL (0.0-0.6); Eosinophils % 4.1 %; Hematocrit 42.1 % (37.5-50.1); Hemoglobin 14.5 g/dL (12.9-16.9); Immature Granulocytes % 0.1 % (0-4); Lymphocytes # 1.9 K/mcL (0.6-4.6); Lymphocytes % 24.4 %; Mean Corpuscular HGB Conc 34.4 g/dL (31.6-35.5); Mean Corpuscular Hemoglobin 29.5 pg (28.0-33.3); Mean Corpuscular Volume 85.7 fL (83.0-100.0); Mean Platelet Volume 9.4 fL (9.4-12.4); Monocytes # 0.7 K/mcL (0.0-1.3); Monocytes % 8.3 %; Neutrophils # 4.9 K/mcL (1.6-8.9); Platelet Count 302 K/mcL (140-400); Red Blood Count 4.91 M/mcL (4.19-5.50); Segmented Neutrophils % 62.1 %; White Blood Count 7.8 K/mcL (4.3-11.1)
[2019-02-22 14:07] LABS: BUN/Creatinine Ratio 18 (6-26); Blood Urea Nitrogen 19 mg/dL (6-20); Calcium 8.8 mg/dL (8.6-10.3); Carbon Dioxide 27 mEq/L (23-29); Chloride 100 mEq/L (98-107); Glucose 115 mg/dL (70-105); Osmolality,Calculated 275 (280-300); Potassium 3.7 mEq/L (3.5-5.1); Sodium 131 mEq/L (136-145); eGFR For African Americans > 60 (> 60); eGFR For Non-African Americans > 60 (> 60)
[2019-02-22] MEDS: traZODone 50 MG TABLET PO SCH (23:07)
[2019-02-23] MEDS: Piperacillin/Tazobactam 3.375 GM in 0.9 % Sodium Chloride Mini Bag 100 ML IVPB SCH ×3 (03:02→20:18)
[2019-02-23 06:55] LABS: BUN/Creatinine Ratio 18 (6-26); Blood Urea Nitrogen 20 mg/dL (6-20); Calcium 9.4 mg/dL (8.6-10.3); Carbon Dioxide 30 mEq/L (23-29); Chloride 100 mEq/L (98-107); Glucose 112 mg/dL (70-105); Osmolality,Calculated 287 (280-300); Sodium 137 mEq/L (136-145); eGFR For African Americans > 60 (> 60); eGFR For Non-African Americans > 60 (> 60)
[2019-02-23] MEDS: Budesonide/Formoterol 80/4.5 1 PUFF INH IH SCH ×2 (07:50→20:46)
[2019-02-23] MEDS: Tiotropium 18 MCG inhalation IH SCH (07:51)
[2019-02-23] MEDS: Gabapentin 300 MG CAPSULE PO SCH ×3 (09:34→20:18)
[2019-02-23] MEDS: Aspirin Enteric Coated 81 MG Tablet PO SCH (09:35)
[2019-02-23] MEDS: Baclofen 10 MG TABLET PO SCH ×3 (09:35→20:18)
[2019-02-23] MEDS: Nicotine 14 MG PATCH.TD24 TD SCH (09:35)
[2019-02-23] MEDS: *HR* Rivaroxaban 10 MG TABLET PO SCH (09:35)
[2019-02-23] MEDS: Silvasorb 44.4 ML TUBE TP SCH (16:24)
[2019-02-23] MEDS: traZODone 50 MG TABLET PO SCH (20:18)
[2019-02-24] MEDS: Piperacillin/Tazobactam 3.375 GM in 0.9 % Sodium Chloride Mini Bag 100 ML IVPB SCH ×3 (03:00→22:38)
[2019-02-24 04:55] LABS: BUN/Creatinine Ratio 23 (6-26); Blood Urea Nitrogen 23 mg/dL (6-20); Carbon Dioxide 29 mEq/L (23-29); Chloride 103 mEq/L (98-107); Glucose 110 mg/dL (70-105); Osmolality,Calculated 288 (280-300); Sodium 137 mEq/L (136-145); eGFR For African Americans > 60 (> 60); eGFR For Non-African Americans > 60 (> 60)
[2019-02-24] MEDS: Nicotine 14 MG PATCH.TD24 TD SCH (07:22)
[2019-02-24] MEDS: Aspirin Enteric Coated 81 MG Tablet PO SCH (07:22)
[2019-02-24] MEDS: Gabapentin 300 MG CAPSULE PO SCH ×3 (07:22→22:38)
[2019-02-24] MEDS: Baclofen 10 MG TABLET PO SCH ×3 (07:22→22:38)
[2019-02-24] MEDS: *HR* Rivaroxaban 10 MG TABLET PO SCH (07:22)
[2019-02-24] MEDS: Budesonide/Formoterol 80/4.5 1 PUFF INH IH SCH ×2 (07:40→20:12)
[2019-02-24] MEDS: Tiotropium 18 MCG inhalation IH SCH (07:40)
[2019-02-24 09:54] LABS: INR 1.4; Prothrombin Time 15.9 Seconds (9.4-12.1)
[2019-02-24] MEDS: Silvasorb 44.4 ML TUBE TP SCH (15:36)
[2019-02-24] MEDS ORDERED: Lidocaine -MPF 1% 5 ML AMPUL INFILT ONE (16:06)
[2019-02-24] MEDS: traZODone 50 MG TABLET PO SCH (22:38)
[2019-02-25] MEDS: Piperacillin/Tazobactam 3.375 GM in 0.9 % Sodium Chloride Mini Bag 100 ML IVPB SCH (05:17)
[2019-02-25 06:00] LABS: BUN/Creatinine Ratio 18 (6-26); Blood Urea Nitrogen 19 mg/dL (6-20); Calcium 8.9 mg/dL (8.6-10.3); Carbon Dioxide 31 mEq/L (23-29); Chloride 103 mEq/L (98-107); Glucose 115 mg/dL (70-105); Osmolality,Calculated 293 (280-300); Potassium 3.8 mEq/L (3.5-5.1); Sodium 140 mEq/L (136-145); eGFR For African Americans > 60 (> 60); eGFR For Non-African Americans > 60 (> 60)
[2019-02-25] MEDS: Budesonide/Formoterol 80/4.5 1 PUFF INH IH SCH (07:32)
[2019-02-25] MEDS: Tiotropium 18 MCG inhalation IH SCH (07:32)
[2019-02-25] MEDS ORDERED: ceFAZolin 1,000 MG in Water for inj. (sterile) 10 ML IVP SCH (08:00)
[2019-02-25] MEDS: Baclofen 10 MG TABLET PO SCH (08:46)
[2019-02-25] MEDS: Aspirin Enteric Coated 81 MG Tablet PO SCH (08:46)
[2019-02-25] MEDS: Gabapentin 300 MG CAPSULE PO SCH (08:47)
[2019-02-25] MEDS: Silvasorb 44.4 ML TUBE TP SCH (08:47)
[2019-02-25] MEDS: *HR* Rivaroxaban 10 MG TABLET PO SCH (08:54)
[2019-02-25] MEDS: Nicotine 14 MG PATCH.TD24 TD SCH (08:54)
[2019-02-25 11:45] VITALS: BP 109/67
== END 2019-02-25 14:23 | disposition home health service (06) | DRG 564 ==
LOC: 3NENU 14:50 → EMEROOARM 14:50 → 3NENU 22:24 → SUATTDRO 02-21 15:48
PROVIDERS: ADMIT Internal Medicine; ATTEND Internal Medicine

== ENCOUNTER 2021-09-06 15:14 | Inpatient (IN) ==
[2021-09-06 19:37] LABS: Basophils # 0.1 K/mcL (0.0-0.2); Basophils % 0.6 %; Eosinophils # 0.2 K/mcL (0.0-0.6); Eosinophils % 2.4 %; Hematocrit 49.1 % (37.5-50.1); Hemoglobin 16.3 g/dL (12.9-16.9); Immature Granulocytes % 0.3 % (0-4); Lymphocytes # 1.7 K/mcL (0.6-4.6); Lymphocytes % 21.2 %; Mean Corpuscular HGB Conc 33.2 g/dL (31.6-35.5); Mean Corpuscular Hemoglobin 29.6 pg (28.0-33.3); Mean Corpuscular Volume 89.3 fL (83.0-100.0); Monocytes % 12.8 %; Platelet Count 211 K/mcL (140-400); Red Cell Distribution Width 13.1 % (11.5-14.5); Segmented Neutrophils % 62.7 %; White Blood Count 7.9 K/mcL (4.3-11.1)
[2021-09-06] MEDS ORDERED: Iopamidol - 370 500 ML MLS IVP ONE ×2 (20:23→21:53)
[2021-09-06 21:14] LABS: BUN/Creatinine Ratio 18 (6-26); Blood Urea Nitrogen 16 mg/dL (8-23); Carbon Dioxide 29 mEq/L (23-29); Chloride 99 mEq/L (98-107); Glucose 108 mg/dL (70-105); Osmolality,Calculated 282 (280-300); Potassium 4.4 mEq/L (3.5-5.1); Sodium 135 mEq/L (136-145); Troponin I < 0.03 ng/mL (< 0.04); eGFR For African Americans > 60 (> 60); eGFR For Non-African Americans > 60 (> 60)
[2021-09-06] MEDS ORDERED: methocarbamoL 500 MG TABLET PO ONE (21:15)
[2021-09-06] MEDS ORDERED: Morphine Sulfate 2 MG/ML SYRINGE IVP ONE (21:15)
[2021-09-06] MEDS ORDERED: *HR* Heparin 5,000 UNIT/ML VIAL IVP ONE (21:23)
[2021-09-06] MEDS ORDERED: *HR* Heparin 5,000 UNIT/ML VIAL IVP PRN ×2 (21:23)
[2021-09-06] MEDS ORDERED: Heparin 25,000UNIT/250ML 1/2NS 25,000 UNIT/250 ML IV.SOLN IVC SCH (21:30)
[2021-09-06] MEDS ORDERED: Ipratropium/Albuterol Neb 3 ML IH ONE (21:53)
[2021-09-06] MEDS ORDERED: methylPREDNISolone 125 MG/2 ML VIAL IVP ONE (21:53)
[2021-09-06] MEDS ORDERED: Albuterol 2.5 MG/3 ML NEBULIZER IH ONE (21:53)
[2021-09-06 23:53] LABS: INR 1.1; Prothrombin Time 12.8 Seconds (9.4-12.1)
[2021-09-06 23:58] LABS: ABG Base Excess 1 mEq/L (-2 to 3); ABG HCO3 27 mEq/L (21-27); ABG Oxygen Saturation 96 % (95-98); ABG PCO2 46 mmHg (35-45); ABG PH 7.38 pH Units (7.32-7.45); ABG PO2 86 mmHg (85-104); ABG TCO2 28 mEq/L (20-26)
[2021-09-07 00:09] LABS: Activated Partial Thrombo Time 221.3 Seconds (26.0-36.0); Heparin anti-factor XA UFH 1.25 IU/mL (0.30-0.70)
[2021-09-07] MEDS ORDERED: Morphine Sulfate 2 MG/ML SYRINGE IVP ONE (00:48)
[2021-09-07] MEDS ORDERED: Albuterol 2.5 MG/3 ML NEBULIZER IH ONE (00:48)
[2021-09-07] MEDS ORDERED: methocarbamoL 500 MG TABLET PO ONE (00:48)
[2021-09-07] MEDS ORDERED: Ondansetron 4 MG/2 ML VIAL IVP PRN (03:48)
[2021-09-07] MEDS ORDERED: Naloxone 0.4 MG/ML INJ IVP PRN (03:48)
[2021-09-07] MEDS ORDERED: *HR* Heparin 5,000 UNIT/ML VIAL IVP PRN (04:40)
[2021-09-07 05:17] LABS: Basophils % 0.3 %; Hematocrit 46.6 % (37.5-50.1); Hemoglobin 15.6 g/dL (12.9-16.9); Immature Granulocytes % 0.1 % (0-4); Lymphocytes # 0.3 K/mcL (0.6-4.6); Lymphocytes % 4.5 %; Mean Corpuscular HGB Conc 33.5 g/dL (31.6-35.5); Mean Corpuscular Hemoglobin 29.8 pg (28.0-33.3); Mean Corpuscular Volume 89.1 fL (83.0-100.0); Mean Platelet Volume 10.4 fL (9.4-12.4); Monocytes # 0.1 K/mcL (0.0-1.3); Monocytes % 1.4 %; Neutrophils # 6.8 K/mcL (1.6-8.9); Platelet Count 185 K/mcL (140-400); Red Blood Count 5.23 M/mcL (4.19-5.50); Segmented Neutrophils % 93.7 %; White Blood Count 7.3 K/mcL (4.3-11.1)
[2021-09-07 05:27] LABS: Heparin anti-factor XA UFH < 0.04 IU/mL (0.30-0.70)
[2021-09-07 05:30] LABS: Activated Partial Thrombo Time 31.4 Seconds (26.0-36.0)
[2021-09-07 05:40] LABS: Alanine Aminotransferase 7 Units/L (7-52); Albumin 4.1 g/dL (3.5-5.7); Albumin/Globulin Ratio 1.4 (1.1-2.2); Alkaline Phosphatase 104 Units/L (34-104); Aspartate Amino Transferase 10 Units/L (13-39); BUN/Creatinine Ratio 21 (6-26); Bilirubin,Direct 0.2 mg/dL (0.0-0.2); Bilirubin,Indirect 0.5 mg/dL (0.0-1.0); Bilirubin,Total 0.7 mg/dL (0.3-1.0); Blood Urea Nitrogen 18 mg/dL (8-23); Calcium 8.8 mg/dL (8.6-10.3); Carbon Dioxide 26 mEq/L (23-29); Chloride 97 mEq/L (98-107); Glucose 147 mg/dL (70-105); Magnesium 1.9 mg/dL (1.6-2.6); Osmolality,Calculated 277 (280-300); Potassium 4.6 mEq/L (3.5-5.1); Sodium 131 mEq/L (136-145); Total Protein 7.1 g/dL (6.4-8.9); eGFR For African Americans > 60 (> 60); eGFR For Non-African Americans > 60 (> 60)
[2021-09-07 05:51] LABS: Thyroid Stimulating Hormone 0.329 mcIU/mL (0.340-5.600)
[2021-09-07] MEDS: Heparin 25,000UNIT/250ML 1/2NS 25,000 UNIT/250 ML IV.SOLN IVC SCH (06:13)
[2021-09-07] MEDS: Ipratropium/Albuterol Neb 3 ML IH PRN ×4 (06:25→19:49)
[2021-09-07 07:30] LABS: Adenovirus Not Detected (Not Detect); Bordetella Pertussis Not Detected (Not Detect); Chlamydophila pneumoniae Not Detected (Not Detect); Coronavirus 229E Not Detected (Not Detect); Coronavirus HKU1 Not Detected (Not Detect); Coronavirus NL63 Not Detected (Not Detect); Coronavirus OC43 Not Detected (Not Detect); Human Metapneumovirus Not Detected (Not Detect); Human Rhinovirus/Enterovirus Not Detected (Not Detect); Influenza A Subtype 2009 H1 Not Detected (Not Detect); Influenza B Not Detected (Not Detect); Mycoplasma pneumoniae Not Detected (Not Detect); Parainfluenza Virus 1 Not Detected (Not Detect); Parainfluenza Virus 2 Not Detected (Not Detect); Parainfluenza Virus 3 Not Detected (Not Detect); Parainfluenza Virus 4 Not Detected (Not Detect); Respiratory Syncytial Virus Not Detected (Not Detect); SARS-CoV-2 Not Detected (Not Detect)
[2021-09-07 08:28] LABS: Bilirubin,Urine Negative (Negative); Blood,Urine Negative (Negative); Clarity,Urine Clear (Clear); Color,Urine Yellow (Yellow); Glucose,Urine (UA) 200 mg/dL (Normal); Ketones,Urine 40 mg/dL (Negative); Leukocyte Esterase,Urine Negative (Negative); Mucus,Urine Few per lpf (None-Few); Nitrite,Urine Negative (Negative); Protein,Urine Trace mg/dL (Neg-Trace); RBC,Urine 0-3 per hpf (0-3); Specific Gravity,Urine > 1.030 (1.010-1.025); WBC,Urine 0-3 per hpf (0-3)
[2021-09-07] MEDS: MethylPREDNISolone 40 MG/ML VIAL IVP SCH ×2 (08:35→21:06)
[2021-09-07] MEDS ORDERED: Acetaminophen 325 MG TABLET PO PRN (08:57)
[2021-09-07] MEDS ORDERED: *HR* HYDROcodone/Acet 5/325 mg TABLET PO PRN (08:57)
[2021-09-07] MEDS ORDERED: Azithromycin 500 MG in 0.9 % Sodium Chloride 250 ML IVPB SCH (09:00)
[2021-09-07] MEDS: *HR* Heparin 5,000 UNIT/ML VIAL IVP PRN (14:29)
[2021-09-07] MEDS ORDERED: Warfarin perPT PO PRN (18:00)
[2021-09-07] MEDS ORDERED: *HR* Warfarin 5 MG TABLET PO ONE (18:00)
[2021-09-07] MEDS ORDERED: *HR* Rivaroxaban 10 MG TABLET PO ONE (22:09)
[2021-09-08 02:57] LABS: Basophils % 0.1 %; Hematocrit 44.3 % (37.5-50.1); Hemoglobin 14.8 g/dL (12.9-16.9); Immature Granulocytes % 0.4 % (0-4); Lymphocytes # 0.6 K/mcL (0.6-4.6); Lymphocytes % 4.6 %; Mean Corpuscular HGB Conc 33.4 g/dL (31.6-35.5); Mean Corpuscular Hemoglobin 29.5 pg (28.0-33.3); Mean Corpuscular Volume 88.4 fL (83.0-100.0); Mean Platelet Volume 10.5 fL (9.4-12.4); Monocytes # 0.7 K/mcL (0.0-1.3); Monocytes % 5.4 %; Neutrophils # 11.1 K/mcL (1.6-8.9); Platelet Count 207 K/mcL (140-400); Red Blood Count 5.01 M/mcL (4.19-5.50); Red Cell Distribution Width 12.8 % (11.5-14.5); Segmented Neutrophils % 89.5 %; White Blood Count 12.4 K/mcL (4.3-11.1)
[2021-09-08 03:03] LABS: Prothrombin Time 10.6 Seconds (9.4-12.1)
[2021-09-08] MEDS: Ipratropium/Albuterol Neb 3 ML IH PRN ×6 (03:16→23:35)
[2021-09-08 03:19] LABS: Alanine Aminotransferase 7 Units/L (7-52); Albumin 3.9 g/dL (3.5-5.7); Albumin/Globulin Ratio 1.2 (1.1-2.2); Alkaline Phosphatase 90 Units/L (34-104); Aspartate Amino Transferase 11 Units/L (13-39); BUN/Creatinine Ratio 22 (6-26); Bilirubin,Total 0.4 mg/dL (0.3-1.0); Blood Urea Nitrogen 18 mg/dL (8-23); Carbon Dioxide 27 mEq/L (23-29); Chloride 102 mEq/L (98-107); Globulin 3.2 g/dL (2.4-3.5); Glucose 173 mg/dL (70-105); Osmolality,Calculated 288 (280-300); Potassium 4.3 mEq/L (3.5-5.1); Sodium 136 mEq/L (136-145); Total Protein 7.1 g/dL (6.4-8.9); eGFR For African Americans > 60 (> 60); eGFR For Non-African Americans > 60 (> 60)
[2021-09-08] MEDS: *HR* Heparin 5,000 UNIT/ML VIAL IVP PRN ×2 (03:35→17:26)
[2021-09-08] MEDS: Heparin 25,000UNIT/250ML 1/2NS 25,000 UNIT/250 ML IV.SOLN IVC SCH (05:22)
[2021-09-08] MEDS: Azithromycin 250 MG TABLET PO SCH (09:14)
[2021-09-08] MEDS: MethylPREDNISolone 40 MG/ML VIAL IVP SCH (09:14)
[2021-09-08] MEDS ORDERED: *HR* Warfarin 5 MG TABLET PO ONE (18:00)
[2021-09-09 01:27] LABS: Basophils % 0.1 %; Eosinophils % 0.2 %; Hematocrit 39.9 % (37.5-50.1); Hemoglobin 13.3 g/dL (12.9-16.9); Immature Granulocytes % 0.4 % (0-4); Lymphocytes # 1.5 K/mcL (0.6-4.6); Lymphocytes % 17.4 %; Mean Corpuscular HGB Conc 33.3 g/dL (31.6-35.5); Mean Corpuscular Volume 89.9 fL (83.0-100.0); Mean Platelet Volume 10.4 fL (9.4-12.4); Monocytes # 0.9 K/mcL (0.0-1.3); Monocytes % 10.3 %; Neutrophils # 6.1 K/mcL (1.6-8.9); Platelet Count 175 K/mcL (140-400); Red Blood Count 4.44 M/mcL (4.19-5.50); Red Cell Distribution Width 13.1 % (11.5-14.5); Segmented Neutrophils % 71.6 %; White Blood Count 8.5 K/mcL (4.3-11.1)
[2021-09-09 01:34] LABS: INR 1.1; Prothrombin Time 12.4 Seconds (9.4-12.1)
[2021-09-09 01:46] LABS: Alanine Aminotransferase 10 Units/L (7-52); Albumin 3.3 g/dL (3.5-5.7); Albumin/Globulin Ratio 1.3 (1.1-2.2); Alkaline Phosphatase 70 Units/L (34-104); Aspartate Amino Transferase 12 Units/L (13-39); BUN/Creatinine Ratio 28 (6-26); Bilirubin,Total 0.3 mg/dL (0.3-1.0); Blood Urea Nitrogen 22 mg/dL (8-23); Calcium 8.3 mg/dL (8.6-10.3); Carbon Dioxide 28 mEq/L (23-29); Chloride 103 mEq/L (98-107); Globulin 2.6 g/dL (2.4-3.5); Glucose 110 mg/dL (70-105); Osmolality,Calculated 288 (280-300); Potassium 3.8 mEq/L (3.5-5.1); Sodium 137 mEq/L (136-145); Total Protein 5.9 g/dL (6.4-8.9); eGFR For African Americans > 60 (> 60); eGFR For Non-African Americans > 60 (> 60)
[2021-09-09] MEDS: Heparin 25,000UNIT/250ML 1/2NS 25,000 UNIT/250 ML IV.SOLN IVC SCH ×2 (03:16→23:57)
[2021-09-09] MEDS: Ipratropium/Albuterol Neb 3 ML IH PRN ×6 (04:02→23:42)
[2021-09-09] MEDS: predniSONE 20 MG TABLET PO SCH (09:43)
[2021-09-09] MEDS: Azithromycin 250 MG TABLET PO SCH (09:43)
[2021-09-09] MEDS ORDERED: *HR* Warfarin 7.5 MG TABLET PO ONE (18:00)
[2021-09-10 01:43] LABS: Basophils % 0.3 %; Eosinophils % 0.5 %; Hematocrit 41.1 % (37.5-50.1); Hemoglobin 13.6 g/dL (12.9-16.9); Immature Granulocytes % 0.3 % (0-4); Lymphocytes # 1.5 K/mcL (0.6-4.6); Lymphocytes % 23.9 %; Mean Corpuscular HGB Conc 33.1 g/dL (31.6-35.5); Mean Corpuscular Hemoglobin 29.6 pg (28.0-33.3); Mean Corpuscular Volume 89.5 fL (83.0-100.0); Mean Platelet Volume 10.3 fL (9.4-12.4); Monocytes # 0.7 K/mcL (0.0-1.3); Monocytes % 10.3 %; Neutrophils # 4.1 K/mcL (1.6-8.9); Platelet Count 207 K/mcL (140-400); Red Blood Count 4.59 M/mcL (4.19-5.50); Red Cell Distribution Width 13.1 % (11.5-14.5); Segmented Neutrophils % 64.7 %; White Blood Count 6.3 K/mcL (4.3-11.1)
[2021-09-10 01:50] LABS: INR 1.4; Prothrombin Time 15.9 Seconds (9.4-12.1)
[2021-09-10 02:07] LABS: Alanine Aminotransferase 15 Units/L (7-52); Albumin 3.3 g/dL (3.5-5.7); Albumin/Globulin Ratio 1.3 (1.1-2.2); Alkaline Phosphatase 70 Units/L (34-104); Aspartate Amino Transferase 17 Units/L (13-39); BUN/Creatinine Ratio 21 (6-26); Bilirubin,Total 0.3 mg/dL (0.3-1.0); Blood Urea Nitrogen 16 mg/dL (8-23); Calcium 8.5 mg/dL (8.6-10.3); Carbon Dioxide 26 mEq/L (23-29); Chloride 102 mEq/L (98-107); Globulin 2.6 g/dL (2.4-3.5); Glucose 117 mg/dL (70-105); Osmolality,Calculated 280 (280-300); Sodium 134 mEq/L (136-145); Total Protein 5.9 g/dL (6.4-8.9); eGFR For African Americans > 60 (> 60); eGFR For Non-African Americans > 60 (> 60)
[2021-09-10] MEDS: Ipratropium/Albuterol Neb 3 ML IH PRN ×5 (03:46→23:07)
[2021-09-10] MEDS: predniSONE 20 MG TABLET PO SCH (08:11)
[2021-09-10] MEDS: Azithromycin 250 MG TABLET PO SCH (08:11)
[2021-09-10] MEDS ORDERED: *HR* Warfarin 5 MG TABLET PO ONE (18:00)
[2021-09-10] MEDS: Heparin 25,000UNIT/250ML 1/2NS 25,000 UNIT/250 ML IV.SOLN IVC SCH (21:06)
[2021-09-11] MEDS: Ipratropium/Albuterol Neb 3 ML IH PRN ×6 (03:35→22:50)
[2021-09-11] MEDS: predniSONE 20 MG TABLET PO SCH (08:13)
[2021-09-11] MEDS: Azithromycin 250 MG TABLET PO SCH (08:13)
[2021-09-11 08:20] LABS: INR 1.9; Prothrombin Time 20.8 Seconds (9.4-12.1)
[2021-09-11 08:34] LABS: BUN/Creatinine Ratio 16 (6-26); Blood Urea Nitrogen 14 mg/dL (8-23); Calcium 8.1 mg/dL (8.6-10.3); Carbon Dioxide 35 mEq/L (23-29); Chloride 100 mEq/L (98-107); Glucose 81 mg/dL (70-105); Osmolality,Calculated 284 (280-300); Potassium 3.8 mEq/L (3.5-5.1); Sodium 137 mEq/L (136-145); eGFR For African Americans > 60 (> 60); eGFR For Non-African Americans > 60 (> 60)
[2021-09-11 13:10] LABS: Estimated Average Glucose 126 mg/dl
[2021-09-11] MEDS ORDERED: *HR* Warfarin 1 MG TABLET PO ONE (18:00)
[2021-09-11] MEDS: Heparin 25,000UNIT/250ML 1/2NS 25,000 UNIT/250 ML IV.SOLN IVC SCH (19:23)
[2021-09-12] MEDS: Ipratropium/Albuterol Neb 3 ML IH PRN ×4 (03:36→17:08)
[2021-09-12 06:32] LABS: INR 1.5; Prothrombin Time 16.6 Seconds (9.4-12.1)
[2021-09-12 06:40] LABS: BUN/Creatinine Ratio 16 (6-26); Blood Urea Nitrogen 14 mg/dL (8-23); Calcium 8.4 mg/dL (8.6-10.3); Carbon Dioxide 32 mEq/L (23-29); Chloride 99 mEq/L (98-107); Glucose 95 mg/dL (70-105); Osmolality,Calculated 284 (280-300); Potassium 3.7 mEq/L (3.5-5.1); Sodium 137 mEq/L (136-145); eGFR For African Americans > 60 (> 60); eGFR For Non-African Americans > 60 (> 60)
[2021-09-12] MEDS: predniSONE 20 MG TABLET PO SCH (08:38)
[2021-09-12] MEDS ORDERED: *HR* Warfarin 7.5 MG TABLET PO ONE ×2 (13:25→18:00)
[2021-09-12 16:47] VITALS: BP 120/78; PULSE 87; TEMP 97.8
[2021-09-12 17:09] VITALS: O2SAT 99
[2021-09-12] MEDS ORDERED: *HR* Enoxaparin 80 MG/0.8 ML SYRINGE SQ SCH (18:00)
== END 2021-09-12 17:28 | disposition home or self-care (01) | DRG 300 ==
LOC: EMEROOARM 15:14 → 3ANU 15:14 → SUATTDRO 09-07 03:37 → 3ANU 09-07 04:36
PROVIDERS: ADMIT Internal Medicine; ATTEND Family Medicine